=== PATIENT | female | born 1990 | race African-American/Black ===

== ENCOUNTER 2017-06-27 10:59 | Emergency (ER) | payer SELFPAY ==
[~2017-06-27] VITALS: Ht 170.2 cm; Wt 90.9 kg
[~2017-06-27 10:59] MED LIST: PREN1TAB80 PO
[2017-06-27] MEDS ORDERED: KETOROLAC TROMETHAMINE 60 MG/2 ML VIAL IM ONE (12:00)
[2017-06-27 12:17] LABS: GLUCOSE, URINE (UA) NEGATIVE (NEGATIVE); KETONES,URINE NEGATIVE (NEGATIVE); LEUKOCYTE ESTERASE ,URINE NEGATIVE (NEGATIVE); OCCULT BLOOD,URINE NEGATIVE (NEGATIVE); PROTEIN,URINE NEGATIVE (NEGATIVE)
[2017-06-27 12:19] LABS: ADD UA MICROSCOPIC NO; APPEARANCE,URINE HAZY (CLEAR)
[2017-06-27 13:23] VITALS: BP 127/69
== END 2017-06-27 14:02 | disposition home or self-care (01) ==
LOC: EMS 10:59
DX: S39.012A Strain of muscle, fascia and tendon of lower back, initial encounter (principal); I10 Essential (primary) hypertension; J44.9 Chronic obstructive pulmonary disease, unspecified; X58.XXXA Exposure to other specified factors, initial encounter; Y93.89 Activity, other specified; Y92.89 Other specified places as the place of occurrence of the external cause; Y99.8 Other external cause status
CPT/HCPCS: 72100; 81003; 81025; 96372; 99285; J1885

== ENCOUNTER 2018-11-18 22:08 | Emergency (ER) | payer SELFPAY | END 2018-11-18 23:00 | disposition left against medical advice (07) | LOC: EMS 22:09 | DX: N89.8 Other specified noninflammatory disorders of vagina (principal); Z53.21 Procedure and treatment not carried out due to patient leaving prior to being seen by health care provider ==